=== PATIENT | female | born 1995 | race Caucasian/White ===

== ENCOUNTER 2017-06-24 21:22 | Emergency (ER) | payer OTHER ==
[~2017-06-24] VITALS: Ht 165.1 cm; Wt 77.3 kg
[2017-06-24] MEDS ORDERED: AUGM875T28 PO (23:11)
[2017-06-24] MEDS ORDERED: IBUP-1022 PO (23:11)
[2017-06-24] MEDS ORDERED: AUGMENTIN 875 MG TAB PO ONE (23:15)
[2017-06-24 23:28] VITALS: BP 141/93
== END 2017-06-24 23:29 | disposition home or self-care (01) ==
LOC: M ED 21:22 → EDBD 21:22 → M ED 23:29
DX: L60.0 Ingrowing nail (principal)

== ENCOUNTER → 2018-03-21 | Outpatient (REF) | payer OTHER ==
[2018-03-21 16:24] LABS: ESTIMATED AVERAGE GLUCOSE 100 MG/DL (60-110); HEMOGLOBIN A1c 5.1 %
== END ==
LOC: M SFHCLERA 08:04
DX: E66.3 Overweight (principal)
CPT/HCPCS: 83036